=== PATIENT | female | born 1970 | race Caucasian/White ===

== ENCOUNTER 2025-05-12 11:52 | Emergency (ER) | payer OTHER, SELFPAY ==
[2025-05-12] VITALS (7 sets, daily range): BP systolic 125–161; BP diastolic 72–101; PULSE 76–95; RESP 16–20; TEMP 36.5–36.7; O2SAT 96–97; BMI 75.9; BMI 34.7
--- NOTE | ~2025-05-12 | CT_ITS ---
EXAMINATION: CT FACIAL BONES WITH CONTRAST CLINICAL INFORMATION: Heart palate abscess COMPARISON: None available. TECHNIQUE: Axial CT was performed through the facial bones with IV contrast. Coronal and sagittal reformatted images were generated from the original axial data set. ALARA: The examination used one or more of the following radiation dose reduction techniques: Automated exposure control, iterative reconstruction, and/or adjustment of mA and/or KV. IV contrast: 85 mL Omnipaque 350 FINDINGS: There is a fluid collection with peripheral enhancement along the caudal margin of the hard palate (maxilla) measuring 2.3 x 1.2 x 2.7 cm (AP by cc by transverse) with serpentine margins anteriorly. There is a second loculated fluid collection with peripheral enhancement cephalad to the hard palate located between the bony septum and the inferior left meatus measuring 3.8 x 0.7 x 1.7 cm (AP by cc by transverse). There is focal osteopenia and loss of the cortical white line involving the hard palate, left of midline, located 12 mm from the posterior margin of the hard palate of the maxilla. There is also likely extension of the loculated fluid collection lateral to the turn of the sylvester which demonstrates osteopenia inferiorly. There is moderate mucosal thickening in the left maxillary sinus and mild thickening in the floor the right and in the left ethmoid air cells. Bony structures are otherwise unremarkable. Orbits are unremarkable. Visualized intracranial structures are unremarkable. CT/CT facial bones w IV con IMPRESSION: There is a loculated fluid collection with peripheral enhancement and irregular margins likely representing an abscess located both cephalad and caudal to the hard palate of the maxilla. It is left of the bony septum and within the left inferior meatus cephalad to the hard palate. It extends right of midline caudal to the hard palate. There is likely osteomyelitis involving the posterior region of the hard palate and probably the bony sylvester of the inferior meatus. There is associated mucosal thickening in the left maxillary sinus, left ethmoid air cells, and minimally in the floor the right maxillary sinus. Electronically signed by: Mamadou Anderson MD 05/12/2025 04:27 PM EDT
--- NOTE | 2025-05-12 12:11 | ED.DENTAL ---
HPI - Dental/Oral General Chief complaint: Dental/Oral Stated complaint: Dizziness, Infection In Teeth Time Seen by Provider: 05/12/25 14:11 Source: patient, RN notes reviewed and old records reviewed Mode of arrival: ambulatory History of Present Illness ED Provider: Val Veras PA-C HPI Narrative: 55-year-old female with no significant past medical history presenting to the ED complaining of painful dental abscess x 1 week. Admits to similar symptoms in the past, currently taking Amoxicillin 500 mg b.i.d. x2.5 days without relief. Admits area drained a few days ago. Denies having PCP or seeing dentist. States got Amoxicillin prescription online, never actually saw a provider. Also reports intermittent lightheadedness and decreased p.o. intake secondary to pain. Admits to chest pain early this morning, denies at present. Denies fever, inability to swallow, SOB, abdominal pain, vomiting Related Data Allergies Allergy/AdvReac Type Severity Reaction Status Date / Time No Known Allergies (No Known Allergy Verified 05/12/25 12:12 Allergies*) Review of Systems Review of Systems: Yes all other systems are reviewed and are negative Constitutional: Constitutional: Reports as per HPI Neurologic: Denies Abnormal speech present PMFSH Past Medical History Attestation statement: The following information was validated with the patient. Source: old records reviewed Social History Social History Smoked in Last 30 Days: Yes Use of substances other than those prescribed or required for medical reasons: No Advance Directives: No Advance Directives Information Provided: Yes Patient : No Physical Exam Vital Signs: Vital Signs: Last Vital Signs Temp 98.0 F 05/12/25 15:13 Pulse 86 05/12/25 15:17 Resp 20 05/12/25 15:13 BP 138/84 05/12/25 15:17 Pulse Ox 97 05/12/25 15:13 O2 Del Method Room Air 05/12/25 15:13 BMI result Body Mass Index 34.7 Const: General: cooperative, healthy appearing and no acute distress Orientation/consciousness: patient oriented x3 Limitations: no limitations HEENT: Other: Please refer to image below. Fluctuant abscess/cyst noted to hard palate. No induration. No overlying erythema or warmth. Head: Yes normal to inspection and Yes atraumatic Ears: hearing grossly normal bilaterally General nose exam: Normal external nose present Face and sinus: Yes normal facial exam Mouth: no muffled voice Throat: Yes posterior oropharynx normal, Yes uvula midline, No peritonsillar mass, No uvula laterally displaced and No uvular edema Eyes: General: appearance normal, both eyes and all related structures EOM: EOMs intact bilaterally Neck: Neck: Yes normal visual inspection and Yes no meningeal signs Resp: Effort & Inspection: normal respiratory effort, no respiratory distress and no stridor Auscultation: clear to auscultation bilaterally Cardio: Rate: regular rate Heart sounds: S1 normal heart sound present and S2 normal heart sound present Skin: Rashes: no rashes Wounds: no wounds Neuro: General: patient oriented x3, gait normal, tone normal, moves all extremities, no meningeal signs, no focal motor deficits and CN's II-XI intact bilaterally Cranial nerves: Yes CN's II-XII intact bilaterally and Yes Bilaterally intact EOM present Cognition (Neuro): normal cognition Speech: No Abnormal speech present Gait exam (Neuro): Normal gait present Motor exam (neuro): 5/5 motor strength present throughout Extrem: General: Yes normal to inspection Course Course Course Narrative: Carmela Vallejojaycob CERTIFIED HYPERBARIC TECHNOLOGIST 05/12 1211 This is a rapid medical exam. Deferred additional HPI,ROS, PE to primary provider. 55 yo female with no known medical history here with complaints of dental pain, currently on amoxicillin 500mg TID (since Thursday) with concern for dental abscess. Patient has abscess on exam that will need I&D VSS -attempted aspiration with 18 gauge to fluctuant abscess without success. (by myself and Dr. Hwang) > will obtain CT for further eval -AST/ALT mildly elevated. Troponin negative. 1648-- CT facial bones w IV con IMPRESSION: There is a loculated fluid collection with peripheral enhancement and irregular margins likely representing an abscess located both cephalad and caudal to the hard palate of the maxilla. It is left of the bony septum and within the left inferior meatus cephalad to the hard palate. It extends right of midline caudal to the hard palate. There is likely osteomyelitis involving the posterior region of the hard palate and probably the bony sylvester of the inferior meatus. There is associated mucosal thickening in the left maxillary sinus, left ethmoid air cells, and minimally in the floor the right maxillary sinus. > blood cultures & empiric IV Zosyn and vancomycin ordered. -spoke with [facility] transfer line who accepted transfer, accepting physician Dr. Arora Medications Administered Discontinued Medications Generic Name Dose Route Start Last Admin Trade Name Yfn PRN Reason Stop Dose Admin Iohexol 100 ml 05/12/25 16:01 05/12/25 16:01 Iohexol 350 Mg/Ml 100 Ml Infus..Btl IV 05/12/25 16:02 85 ml ONCE ONE Administration Lidocaine HCl 2 ml 05/12/25 14:29 05/12/25 14:42 Lidocaine Hcl 1 % Mpf 2 Ml Vial INFILTRATI 05/12/25 14:30 2 ml ONCE ONE Administration Medical Decision Making Medical Decision Making [facility] Narrative: 55-year-old female with no significant past medical history presenting to the ED complaining of painful dental abscess x 1 week. Admits to similar symptoms in the past, currently taking Amoxicillin 500 mg b.i.d. x2.5 days without relief. On exam vital signs stable, NAD, nontoxic appearing, please refer to image. Concern for abscess vs cyst. No evidence of ECONOMIC HISTORIAN/retropharyngeal abscess. No focal neuro deficits. Rule out metabolic abnormalities and atypical ACS. Low suspicion for CVA/TIA or SAH Plan: EKG, labs, aspiration, orthostatics Please refer to course for remaining clinical decision making, interpretation of labs/imaging results, and discussions with consultants and/or family members. Differential Diagnosis Differential Diagnoses: The differential diagnosis associated with the presentation includes As above Admission/Observation Consideration of admission/observation: Escalation of care including admission/observation considered Consult Healthcare Provider Management of the patient was discussed with: Founder [employer] Lab Data [facility] Lab Attestation statement: I reviewed the patient's lab results. 05/12/25 14:49 05/12/25 14:49 Labs: Lab Results 05/12/25 Range/Units 14:49 WBC 10.5 (4.8-10.8) X10*3/uL RBC 4.70 (4.20-5.50) X10*6/uL Hgb 13.6 (12.0-16.0) g/dl Hct 40.4 (37.0-47.0) % MCV 86.0 (80.0-98.0) fL MCH 28.9 (27.0-33.0) pg MCHC 33.7 (31.0-35.0) g/dl RDW 12.0 (11.0-16.0) % Plt Count 346 (160-400) X10*3/uL MPV 10.1 (9.4-12.3) fL Immature Gran % (Auto) 0.3 (0.0-0.4) % Neut % (Auto) 69.5 (45-73) % Lymph % (Auto) 22.7 (20-40) % Elliott % (Auto) 5.9 (2-11) % Eos % (Auto) 1.1 (0-4) % Baso % (Auto) 0.5 (0-2) % Lymph # (Auto) 2.4 (1.2-4.9) X10*3/uL Elliott # (Auto) 0.6 (0.1-1.2) X10*3/uL Eos # (Auto) 0.1 (0.0-0.4) X10*3/uL Baso # (Auto) 0.1 (0.0-0.2) X10*3/uL Abs Immat Gran (auto) 0.03 (0.00-0.03) X10*3/uL Absolute Neuts (auto) 7.3 (2.0-8.3) x10*3/uL Absolute Nucleated RBC 0.000 (0.0-0.012) X10*3/uL Nucleated RBC % (auto) 0.0 (0.0-0.2) /100WBC Sodium 138 (135-145) mmol/L Potassium 4.1 (3.3-5.1) mmol/L Chloride 100 (96-108) mmol/L Carbon Dioxide 27 (22-29) mmol/L Anion Gap 15 (12-20) BUN 8 L (9-16) mg/dL Creatinine 0.64 (0.5-1.4) mg/dL Estim Creat Clear Calc 202.0 Estimated GFR > 60 Random Glucose 102 (60-115) mg/dL Calcium 10.0 (8.4-10.2) mg/dL Magnesium 2.3 (1.6-2.6) mg/dL Total Bilirubin 0.4 (0.0-1.0) mg/dL Direct Bilirubin 0.2 (0.0-0.5) mg/dL AST 52 H (5-31) U/L ALT 52 H (0-31) U/L Alkaline Phosphatase 135 H (39-117) U/L Troponin I High Sens < 2.7 (<3.5-17.0) ng/L Total Protein 8.6 H (6.5-8.0) g/dL Albumin 4.8 (3.5-5.0) g/dL Independent Interpretation I performed an independent interpretation of an: EKG (My interpretation: EKG normal sinus rhythm rate of 82. IA interval 156. No STEMI. ) and CT Scan Radiology Impression Discussion of test interpretation with radiology: I have reviewed the radiologist's reading. External Record Review External record reviewed: Inpatient record, Office record, Outpatient record, Prior outpatient labs, Prior outpatient radiology, Primary care record and Outside ED record Tests considered The following testing was considered but not selected: As above Prescription Management I considered prescription management with: Pain Medication and Antibiotic Chronic Conditions Patient?s care impacted by: Other Social Determinants Patient?s care significantly limited by Social Determinants of Health including: Low income and Problems related to primary support group Critical Care Time Critical Care Time Critical Care Time: Yes Total Critical Care Time: 50 Attestation: I have personally provided critical care time exclusive of time spent on separately billable procedures. Time includes review of lab data, radiology results, discussion with consultants, and monitoring for potential decompensation. Intervention performed as documented. Discharge Plan Discharge Clinical Impression: Hard palate abscess, Osteomyelitis Patient Disposition: [facility] Transfer Details: [facility] Print Language: Telugu
--- NOTE | 2025-05-12 13:28 | PC.NURSE ---
Patient present to ed c/o mouth pain Pain is intermitted 12/27 Patient has a mouth abscess on the roof of her mouth Patient was seen by online MD who prescribed her amoxicillin, been med compliant Subjective fevers, 98.3 in ED Patient HTN 160/101, all other VSS provider in to see patient plan of care on going
--- NOTE | 2025-05-12 14:29 | ECG_ITS ---
Test Reason : lightheadedness Blood Pressure : */* mmHG Vent. Rate : 82 BPM Atrial Rate : 82 BPM P-R Int : 156 ms QRS Dur : 84 ms QT Int : 382 ms P-R-T Axes : 41 21 26 degrees QTcB Int : 446 ms Normal sinus rhythm Inferior infarct , age undetermined Abnormal ECG When compared with ECG of 19-Aug-2015 06:09, Vent. rate has decreased by 45 bpm Referred By: Val Veras Electronically Signed By: KELLY MCKEON MD
[2025-05-12] MEDS: Lidocaine HCl 1 % MPF 2 ML VIAL INFILTRATI (14:42)
[2025-05-12 14:59] LABS: MANUAL DIFF FLAG NO
[2025-05-12 15:01] LABS: Hematocrit 40.4 % (37.0-47.0); Hemoglobin 13.6 g/dl (12.0-16.0); Imm Gran Abs Auto 0.03 X10*3/uL (0.00-0.03); Imm Gran Pct Auto 0.3 % (0.0-0.4); Lymphocytes Absolute Auto 2.4 X10*3/uL (1.2-4.9); Mean Corpuscular HGB Conc 33.7 g/dl (31.0-35.0); Mean Corpuscular Hemoglobin 28.9 pg (27.0-33.0); Mean Corpuscular Volume 86.0 fL (80.0-98.0); NRBC Abs Auto 0.000 X10*3/uL (0.0-0.012); NRBC Pct Auto 0.0 /100WBC (0.0-0.2); Platelet Count 346 X10*3/uL (160-400); Red Blood Count 4.70 X10*6/uL (4.20-5.50); White Blood Count 10.5 X10*3/uL (4.8-10.8)
[2025-05-12 15:28] LABS: Troponin-I High Sensitivity < 2.7 ng/L (<3.5-17.0)
[2025-05-12 15:49] LABS: Alanine Aminotransferase 52 U/L (0-31); Albumin Level 4.8 g/dL (3.5-5.0); Alkaline Phosphatase 135 U/L (39-117); Anion Gap 15 (12-20); Aspartate Amino Transferase 52 U/L (5-31); Blood Urea Nitrogen 8 mg/dL (9-16); Calcium 10.0 mg/dL (8.4-10.2); Carbon Dioxide 27 mmol/L (22-29); Chloride 100 mmol/L (96-108); Creatinine Clr Calc Pharmacy 202.0; Estimated Glomerular Filt Rate > 60; Magnesium 2.3 mg/dL (1.6-2.6); Potassium 4.1 mmol/L (3.3-5.1); Sodium 138 mmol/L (135-145); Total Protein 8.6 g/dL (6.5-8.0)
[2025-05-12] MEDS: iohexoL 350 MG/ML 100 ML INFUS..BTL IV (16:01)
[2025-05-12 17:22] LABS: Troponin-I High Sensitivity < 2.7 ng/L (<3.5-17.0)
--- NOTE | 2025-05-12 17:47 | PC.NURSE ---
pt transported to [facility] via [facility]- report called to ED- report given to SHIRA Carcamo at .
== END 2025-05-12 17:49 | disposition short-term general hospital (02) ==
PROVIDERS: Physician Assistant; Emergency Provider Emergency Medicine Emergency Medical Services
DX: M27.2 Inflammatory conditions of jaws (principal); R42 Dizziness and giddiness; K08.89 Other specified disorders of teeth and supporting structures; R94.31 Abnormal electrocardiogram [ECG] [EKG]
CPT/HCPCS: 36415; 70487; 80048; 80076; 83735; 84484; 85025; 87040; 93005; 96365; 99285; J2003; J2543; Q9967

== ENCOUNTER → 2025-05-12 14:29 | Outpatient (BNV) | payer OTHER, SELFPAY | PROVIDERS: Emergency Provider Emergency Medicine Emergency Medical Services; Visit Provider Internal Medicine Cardiovascular Disease | DX: R94.31 Abnormal electrocardiogram [ECG] [EKG] (principal); R42 Dizziness and giddiness | CPT/HCPCS: 93010 ==

== ENCOUNTER → 2025-05-12 14:41 | Outpatient (BNV) | payer OTHER, SELFPAY | PROVIDERS: Emergency Provider Emergency Medicine Emergency Medical Services; Visit Provider Radiology Diagnostic Radiology | DX: K12.2 Cellulitis and abscess of mouth (principal) | CPT/HCPCS: 70487 ==